=== PATIENT | male | born 1970 | race Caucasian/White ===

== ENCOUNTER 2017-03-06 08:33 | Inpatient (IN) | payer OTHER ==
[~2017-03-06] VITALS: Ht 182.9 cm; Wt 140.0 kg
--- NOTE | ~2017-03-06 | S ---
[facility] [place] [address] SURGICAL PATH RPT PROCEDURE Name: BAY AKBAR Room #: 442-P ADM IN M.R.#: [id number] Admission: 03/06/17 Date of : 70 Discharge: Report #: [id number] Path Case #: [id number] PATHOLOGY REPORT COLLECTION DATE: 03/06/2017 RECEIVED DATE: 03/06/2017 SUBMITTING PHYS: Dr. Coleman Stewart OTHER PHYS: Dr. Mara Dan SPECIMEN(S) RECEIVED: A.Duodenum B.Gastritis * * * * * * * * * * * * FINAL DIAGNOSIS: A. Small bowel mucosa, duodenum, endoscopic biopsy: - Mild peptic duodenitis. - Negative for villous blunting or increase in intraepithelial lymphocytosis. B. Gastric mucosa, gastritis, endoscopic biopsy: - Mild reactive gastropathy with focal active gastritis. - Negative for intestinal metaplasia or atrophy. - Negative for Helicobacter pylori. (IUV:zoila; 03/07/2017) COMMENT: Helicobacter pylori immunohistochemical stain performed on block B1 Negative. (IUV:zoila; 03/07/2017) PATHOLOGIST: Mouna Pizarro M.D. REPORT ELECTRONICALLY SIGNED BY: Mouna Pizarro M.D. DATE/TIME: 03/07/2017 15:07 * * * * * * * * * * * * GROSS PATHOLOGY: A. Received in formalin labeled "Bay Akbar, duodenum," are four segments of carpenter soft tissue measuring 0.6 x 0.5 x 0.2 cm in aggregate dimensions and ranging from 0.3 to 0.4 cm in maximum dimension. The specimen is submitted entirely in cassette A1. B. Received in formalin labeled "irena Kennedy," are two segments of carpenter soft tissue measuring 0.5 x 0.5 x 0.3 cm in aggregate dimensions and ranging from 0.4 to 0.5 cm in maximum dimension. The specimen is submitted entirely in cassette B1. (TSD; 03/06/2017) [address] [address] SURGICAL PATH RPT PROCEDURE Name: BAY AKBAR Room #: 442-P [facility] IN ..#: [id number] Admission: 03/06/17 Date of : 70 Discharge: Report #: [id number] Path Case #: [id number] CLINICAL HISTORY: Pre-OP DX: Anemia, heme + Post OP DX: Duodenitis, gastritis INITIAL CPT CODE(S): A; 16095 B; 92236, 60638 Professional services performed by [facility] at [address], [place] [address] Technical services performed by [facility] at [address] [place] [address], [facility] [address] [address]. [facility] [address] [address] PHONE: [phone] DIRECTOR: Pavel Castellon M.D. * * * END OF REPORT * * *
--- NOTE | ~2017-03-06 | P ---
[facility] [place] [address] PROCEDURE REPORT Name: GERSON JOHNSON Room #: 442-P [facility] IN ..#: [id number] Admission: 03/06/17 Attend Phys: Coleman Block Discharge: Date of : 70 Report #: [id number] THIS REPORT FOR: //name// CC: Coleman Dan MD DATE OF SERVICE: 03/06/2017 PROCEDURE PERFORMED: Upper endoscopy with biopsies. HISTORY OF PRESENT ILLNESS: The patient is a 46-year-old male with a history of multiple medical problems including end-stage renal disease, on hemodialysis who has a history of anemia. He was noted to have a hemoglobin of 6.2 on 03/02/2017, was reportedly transfused 2 units of packed cells. He presents today for an EGD and colonoscopy, he has never had an endoscopy before. He denies any GI symptoms. Apparently, he had a Hemoccult positive stool as well. He is on Protonix b.i.d. He believes this a new medication, he has been on aspirin, but this has been held for the last few days. DESCRIPTION OF PROCEDURE: The risks and benefits of the procedure were explained to the patient, those risks including but not limited to bleeding, perforation, the risk of sedation. He understood these risks and gave informed consent. Sedation was given using propofol and ketamine per anesthesia. Next, using a standard SoWeTripinon upper endoscope, the scope was placed in the patient's mouth and advanced under direct vision through the esophagus, stomach and into the second portion of the duodenum. The esophagus was normal throughout. The GE junction was normal. There was a mild diffuse gastritis. Biopsies were obtained. No evidence of ulcerations or erosions. No bleeding. The pylorus was normal and patent. The duodenal bulb was normal. In the first and second portion, there was a mild duodenitis. Biopsies were obtained. No bleeding or ulcerations. At this point, the scope was then withdrawn and the procedure terminated. The patient tolerated the procedure well. IMPRESSION: 1. Mild gastritis. 2. Mild duodenitis. 3. Otherwise, normal upper endoscopy. RECOMMENDATIONS: 1. Await biopsy results. 2. Continue PPI therapy. 3. We will proceed with colonoscopy next today. [address] [address] PROCEDURE REPORT Name: GERSON JOHNSON Room #: 442-P [facility] IN .R.#: [id number] Admission: 03/06/17 Attend Phys: Coleman Block Discharge: Date of : 70 Report #: [id number] Thank you for allowing me to participate in his care. <ELECTRONICALLY SIGNED> By: Coleman Stewart MD 03/07/17 1413 1138 1247 Coleman Stewart MD /nt
--- NOTE | ~2017-03-06 | H ---
[facility] [place] [address] HISTORY AND PHYSICAL Name: GERSON JOHNSON Room #: 442-P ADM IN M.R.#: [id number] Admission: 03/06/17 Attend Phys: Coleman Block Discharge: Date of : 70 Report #: [id number] THIS REPORT FOR: //name// CC: Coleman Dan DATE OF SERVICE: 03/06/2017 CHIEF COMPLAINT: Hypoxia, weakness. HISTORY OF PRESENT ILLNESS: The patient is a 46-year-old male with history of chronic kidney disease, history of CVA, status post bilateral below-knee amputation, was recently diagnosed with Strep mitis endocarditis. The patient has been disabled secondary to brain aneurysm and CVA. The patient was admitted at [facility] and was diagnosed with Streptococcus bacteremia. A MILAGROS showed mitral valve regurgitation and subsequently has been treated with IV ceftriaxone 2 gram IV daily. He also went into acute renal failure and has been on hemodialysis since then. The patient was found to have a hemoglobin of 6.6 last week at the ____ center. The patient was subsequently referred to GI for outpatient EGD and colonoscopy. EGD today showed mild gastritis and duodenitis. Colonoscopy was unremarkable. The patient was admitted post-procedure for hypoxia. Anesthesiologist was concerned about his hypoxia. The patient states that he has had mild shortness of breath. The patient denies any chest pain. He has noticed some increasing right arm swelling. He denies any nausea, vomiting, abdominal pain. The patient denies any hematemesis, melena or hematochezia. No cough or expectoration. PAST MEDICAL HISTORY: Significant for chronic kidney disease, history of CVA 3 years ago, history of brain aneurysm, history of peripheral vascular disease status post bilateral BKA, history of diabetes, history of chronic kidney disease, anemia secondary to chronic kidney disease, chronic respiratory failure in the past. PAST SURGICAL HISTORY: Includes bilateral knee amputation and dialysis catheter placement. SOCIAL HISTORY: He is . He is disabled. He does have previous history of smoking. No history of alcohol abuse or illicit drug abuse. FAMILY HISTORY: Significant for diabetes. HOME MEDICATIONS: Reviewed. ALLERGIES: No known drug allergies. REVIEW OF SYSTEMS: [facility] [address] [place] [address] HISTORY AND PHYSICAL Name: GERSON JOHNSON Room #: 442-P [facility] IN [facility].#: [id number] Admission: 03/06/17 Attend Phys: Coleman Block Discharge: Date of : 70 Report #: [id number] CONSTITUTIONAL: The patient has had some low-grade fever. Denies any visual disturbance. No recent weight loss or weight gain. EYES: No change in vision. THROAT: Denies any sore throat. CARDIOVASCULAR: No chest pain. RESPIRATORY: No cough or expectoration. GASTROINTESTINAL: No nausea, vomiting, abdominal pain. GENITOURINARY: No dysuria or hematuria. NEUROLOGIC: Denies any focal numbness or weakness of the extremity. He says he has occasional expressive aphasia. The 12-point review of system is negative other than the positive and the negative dictated in the history of present illness and the review of system. PHYSICAL EXAMINATION: VITAL SIGNS: Reviewed. Blood pressure is 156/89, heart rate of 90 per minute, afebrile. He is saturating around 93% on 2 liters of oxygen, not in acute respiratory distress. EYES: Pupils equal, reactive to light. THROAT: Appears normal. NECK: Supple, no JVD, no bruits, no lymphadenopathy. CARDIOVASCULAR SYSTEM: S1, S2, negative S3, no murmur. CHEST: Bilateral air entry present. Clear on auscultation. There is a dialysis catheter in the right infraclavicular area. The right arm is swollen. ABDOMEN: Soft, bowel sounds present, no mass, no organomegaly, no tenderness. EXTREMITIES: Periphery, status post bilateral below-knee amputation. There is no edema in the stump. LABORATORY DATA: Reviewed. White count is 11.2, hemoglobin 6.6, platelets 297. Coagulation studies are unremarkable. Chemistry showed a sodium of 133, BUN and creatinine of 35 and 5.9. His iron level is low at 19 and ferritin is 211. AST and ALT are within normal limit. Albumin is 2.1. ABG showed a pH of 7.35, pCO2 of 50, pO2 of 69. He had a chest x-ray done, which showed mild congestion and cardiomegaly. Right central venous catheter position in place. There is a tiny opaque density which overlies the neck, possibly related to the bandage or a foreign body. ASSESSMENT AND PLAN: 1. Acute on chronic respiratory failure, probably multifactorial, most likely secondary to his worsening anemia/mild pulmonary congestion. We will consult Pulmonary. We will obtain a Doppler of his right upper extremity to rule out any deep vein thrombosis. We will consider doing a V/Q scan to rule out any PE. 2. Anemia, likely secondary to gastrointestinal bleeding/chronic illness secondary to chronic kidney disease. [facility] [address] [place] [address] HISTORY AND PHYSICAL Name: GERSON JOHNSON Room #: 442-P ADM IN M.R.#: [id number] Admission: 03/06/17 Attend Phys: Coleman Block Discharge: Date of : 70 Report #: [id number] The patient will be transfused 2 units of packed RBC during dialysis. We will repeat his labs in the morning. 3. Acute renal failure, presently on hemodialysis. Nephrology will be consulted for hemodialysis. 4. Deep venous thrombosis prophylaxis, he will be on SCDs if possible. 5. Lovenox has been held in the possibility of GI bleed. 6. Status post EGD showing gastritis. The patient will be on Protonix. 7. History of Strep mitis endocarditis, presently on IV ceftriaxone, which will be continued. Treatment plan has been explained to the patient in detail. By: [id number] Varinder Fu MD /nt
--- NOTE | ~2017-03-06 | P ---
[facility] [address] PROCEDURE REPORT Name: GERSON JOHNSON Room #: 442-P [facility] IN M.R.#: [id number] Admission: 03/06/17 Attend Phys: Coleman Block Discharge: Date of : 70 Report #: [id number] THIS REPORT FOR: //name// CC: Coleman Dan MD DATE OF SERVICE: 03/06/2017 PROCEDURE PERFORMED: Colonoscopy. HISTORY OF PRESENT ILLNESS: The patient is a 46-year-old male with a history of end-stage renal disease, on hemodialysis and other medical problems with a history of anemia, reportedly Hemoccult positive stool recently, hemoglobin of 6.2 on the . He was transfused 2 units. He denies any obvious bright red blood per rectum or melena. No family history of colon cancer. Denies any abdominal pain. DESCRIPTION OF PROCEDURE: The risks and benefits of the procedure were explained to the patient, those risks including but not limited to bleeding, perforation, the risk of sedation. He understood these risks and gave informed consent. Sedation was given using propofol and ketamine per anesthesia. Next, a digital rectal exam was initially performed, which was normal. Next, using a standard Fujinon colonoscope, the scope was placed in the patient's anus and advanced under direct vision to the cecum. The overall prep was fair in some areas and was good in some areas. Multiple washings and aspirations were performed. Most areas were well visualized. The cecum and ileocecal valve were normal in appearance. The ascending, transverse, descending and sigmoid colon were normal. The rectal mucosa was normal. On retroflexion, small nonbleeding internal hemorrhoids were noted. No evidence of bleeding throughout the exam today. The scope was then withdrawn and the procedure terminated. The patient tolerated the procedure well. IMPRESSION: 1. Small nonbleeding internal hemorrhoids. 2. Otherwise, normal colonoscopy. RECOMMENDATIONS: 1. Observe the patient post-procedure. 2. Continue to monitor hemoglobin. Anemia may be secondary to end-stage renal disease. However, he does reportedly have Hemoccult positive stools. If his hemoglobin trends down in the future, could consider an M2 capsule endoscopy as well. Would continue PPI therapy. [address] [address] PROCEDURE REPORT Name: GERSON JOHNSON Room #: 442-P [facility] IN ..#: [id number] Admission: 03/06/17 Attend Phys: Coleman Block Discharge: Date of : 70 Report #: [id number] Thank you for allowing me to participate in his care. <ELECTRONICALLY SIGNED> By: Coleman Stewart MD 03/06/17 1705 1141 1231 Coleman Stewart MD /nt
--- NOTE | ~2017-03-06 | HC ---
[facility] [place] [address] CONSULTATION Name: JOHNSONGERSON Micheal Room #: 442-P ADM IN M.R.#: [id number] Admission: 03/06/17 Attend Phys: Coleman Block Discharge: Date of : 70 Report #: [id number] THIS REPORT FOR: //name// CC: Coleman Stewart Mara Ni DATE OF SERVICE: 03/06/2017 REASON FOR CONSULTATION: End-stage renal disease requiring hemodialysis. HISTORY OF PRESENT ILLNESS: This is a 46-year-old male who has had hospitalizations at multiple different locations. He had been admitted with an endocarditis at in [place], [place]. He was treated with a long course of Rocephin at that location. The patient is not very aware of details, but these details have been provided by one of my partners, Dr. Stephanie Robles, who has been taking care of the patient at [facility]. Apparently during that hospitalization, his baseline creatinine of 3.5 got worse and continued to increase. He had a dialysis catheter placed and he was started on hemodialysis. He was transferred to [facility] for additional care. While there, he has continued to undergo hemodialysis on a Monday, Monday, Monday basis. His last dialysis was 3 days ago on 03/03/2017. His dialysis has actually been going fairly well. He has had his temporary converted to a tunneled right internal jugular vein dialysis catheter. There has been some success with ultrafiltration during his hospital stay. His more pressing issue recently has been that of worsening anemia. Dr. Robles reports at least 4 transfusions over the past week of packed red blood cells. He has been started on iron replacement and also some Aranesp, but that has not had a chance to fully take effect. He was sent over and today had a colonoscopy done and reportedly that was a negative study: He got hypoxemic afterwards and now is admitted to the hospital. I did not have much chance to talk to the patient. PAST MEDICAL HISTORY: The patient has longstanding diabetes, also some hypertension. He has had osteomyelitis and bilateral below the knee amputations. He had the endocarditis with a strep and I am uncertain of the exact bacteria and that he has been on long-term antibiotics for that. He reports a previous brain aneurysm. He has obviously had the anemia as noted above. MEDICATIONS: On admission include aspirin 81 mg daily, atorvastatin 10 mg daily, ceftriaxone 2 grams daily, citalopram 20 mg daily, Aranesp 40 mcg weekly, Lovenox 30 mg daily, hydrocodone for pain, lisinopril 20 mg daily, lorazepam 1 mg q. 6 hours p.r.n., melatonin 5 mg daily, pantoprazole 40 mg daily, MiraLax, iron infusions 125 mg 3 times weekly and a Nephro-Xavier daily, multiple p.r.n. medications. ALLERGIES: No known medical allergies. [address] [address] CONSULTATION Name: GERSON JOHNSON Room #: 442-P [facility] IN M.R.#: [id number] Admission: 03/06/17 Attend Phys: Coleman Block Discharge: Date of : 70 Report #: [id number] FAMILY HISTORY: Noncontributory. SOCIAL HISTORY: The patient is and lives in [place], [place]. He is medically disabled with his bilateral amputations. REVIEW OF SYSTEMS: He has had some swelling in his right arm, which is a newer problem. Denies pain in that arm. His edema has been a problem, but that is quite a bit improved. He reports no dyspnea, cough, chest pain or palpitation at this time. He has been eating without problem. He tends towards constipation. No apparent recent fevers, chills or sweats. PHYSICAL EXAMINATION: GENERAL: A 46-year-old very large male. He is awake, alert and oriented. VITAL SIGNS: Blood pressure 156/89, heart rate 90, oxygen sat 93%, temperature 100.0. HEENT: Shows pupils are equal and reactive. Sclerae nonicteric. Oral mucosa is moist. NECK: Veins are not distended. Right IJ tunneled catheter is in place, looks clean. CHEST: Show shallow respirations bilaterally. HEART: Regular rate and rhythm. ABDOMEN: Obese. He has still substantial abdominal wall edema, at least 2+. Bowel sounds are present. EXTREMITIES: He has bilateral below the knee amputations. He does have 2+ isolated right upper arm edema. The arm is warm and perfused. LABORATORY DATA: Sodium 133, potassium 4.9, chloride 99, bicarbonate 26, BUN 35, creatinine 5.9. Glucose 89, calcium 8.2, phosphorus 5.0, alkaline phosphatase 168, total protein 6.2, albumin 2.1. Iron sat 10%. White count 11.2, hemoglobin 6.6, hematocrit 21.2, platelets 297, ferritin 211. Blood gas; pH 7.35, pCO2 of 50, pO2 of 69.2, lactate 1.04. ASSESSMENT: 1. End-stage renal disease. He is in need of dialysis. He is in need of transfusion. We have been asked to dialyze him today. We will dialyze him and transfuse him 2 units of packed red blood cells. We will run him on 3 potassium dialysate. We will try for 3 liters of ultrafiltration today. 2. Severe anemia requiring multiple recent transfusions, colonoscopy essentially negative. He had some nonbleeding internal hemorrhoids, but nothing else was found of note. 3. Endocarditis, continues on antibiotics. 4. Previous bilateral below the knee amputations. PLAN: 1. Dialysis today with 2 units transfused red blood cells to be given. [facility] [address] [place] [address] CONSULTATION Name: GERSON JOHNSON Room #: 442-P [facility] IN [facility]#: [id number] Admission: 03/06/17 Attend Phys: Coleman Block Discharge: Date of : 70 Report #: [id number] 2. Repeat labs in the morning. 3. We will follow along this patient's care. By: 1644 01 Sundar Gannon MD /nt
--- NOTE | ~2017-03-06 | HC ---
[facility] [place] [address] CONSULTATION Name: GERSON JOHNSON Room #: 442-P [facility] IN M.R.#: [id number] Admission: 03/06/17 Attend Phys: Coleman Block Discharge: Date of : 70 Report #: [id number] THIS REPORT FOR: //name// CC: Coleman Dan DATE OF SERVICE: 03/06/2017 PRIMARY CARE PHYSICIAN: Dr. Mara Dan. REFERRAL PHYSICIAN: Dr. Varinder Fu. REASON FOR REFERRAL: Hypoxia. HISTORY OF PRESENT ILLNESS: The patient is a 46-year-old white male who was admitted with anemia, dyspnea. A pulmonary consultation was requested. The patient has a complicated medical history. He was admitted at ____ [facility] in ____, [place] for endocarditis. He has been on prolonged antibiotics. He also has end-stage renal disease, undergoing hemodialysis. The patient has history of CVA, bilateral jdcnf-cik-dgjx amputation. He was recently admitted to [facility]. He is being evaluated for anemia. He was undergoing colonoscopy earlier today. Following the procedure, the patient had complained of dyspnea, which led to the admission. Currently, he is undergoing hemodialysis. The patient was felt to be volume overloaded. His hemoglobin on admission was around 6. At this time, he feels much better. The patient denies any dyspnea. Denies any history of chronic lung disease. PAST MEDICAL HISTORY: As mentioned above. 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 PAST SURGICAL HISTORY: As mentioned above, he has a dialysis catheter placed. ALLERGIES: None to medications. HOME MEDICATIONS ON ADMISSION: Reviewed as in SEP. The patient remains on Rocephin. FAMILY HISTORY: Remarkable for diabetes in his parents. [facility] [address] [place] [address] CONSULTATION Name: GERSON JOHNSON Micheal Room #: 442-P [facility] IN ..#: [id number] Admission: 03/06/17 Attend Phys: Coleman Block Discharge: Date of : 70 Report #: [id number] SOCIAL HISTORY: The patient denies tobacco or alcohol use. He has smoked in the past, but quit. He is . He is disabled. REVIEW OF SYSTEMS: As mentioned above, otherwise 10-point system review negative. PHYSICAL EXAMINATION: GENERAL: He is awake, alert, in no apparent distress. VITAL SIGNS: Temperature maximum was 100, currently is 98 degrees Fahrenheit; pulse is 87; respiratory rate is 20; blood pressure 140/95 mmHg; saturation 98%. HEENT: Normocephalic, atraumatic. NECK: Supple, without lymphadenopathy or thyromegaly. CHEST: Breath sounds are clear without rales or wheezes. CARDIOVASCULAR: Normal S1, S2. No murmurs or gallop. There is no JVD. There is no carotid bruit. Pulses are 2+/4+ bilaterally. ABDOMEN: Obese, soft, nontender, no organomegaly or masses felt. GENITOURINARY: Deferred. RECTAL: Deferred. EXTREMITIES: Remarkable for bilateral BKA. Otherwise, no cyanosis, clubbing. Revealed edema involving the right upper extremity LABORATORY DATA: Portable chest x-ray shows cardiomegaly with mild interstitial markings bilaterally. Doppler ultrasound of the right upper extremity revealed nonocclusive chronic clot involving the right jugular vein. Arterial blood gas revealed pH 7.35, pCO2 of 50, pO2 of 69 on 4 liters of O2. Hemoglobin early was 6.2, WBC 11,300. Albumin 2.1. IMPRESSION: 1. Dyspnea in this 46-year-old white male. Etiology likely due to volume overload and anemia. He is much better now while undergoing hemodialysis. 2. Acute anemia. Agree to transfusion to keep hemoglobin greater than 7 to 7.5. 3. Chronic hypercapnic respiratory failure. The patient will benefit from sleep evaluation along with pulmonary functions as an outpatient. 4. Endocarditis, undergoing antibiotic therapy. 5. Peripheral vascular disease status post bilateral ptqbu-itrt-aylzjpvryt. 6. End-stage renal disease, as mentioned above being dialyzed at this moment. RECOMMENDATIONS: The patient appears to be well compensated from pulmonary standpoint. We will continue monitoring. Agree with transfusion and dialysis. As an outpatient, the patient would benefit from evaluation of possible sleep disorder. [address] [address] CONSULTATION Name: GERSON JOHNSON Room #: 442-P [facility] IN M.R.#: [id number] Admission: 03/06/17 Attend Phys: Coleman Block Discharge: Date of : 70 Report #: [id number] Thank you for this consultation. By: [id number] Zen Desai, ERIN /nt
[~2017-03-06 08:33] MED LIST: ALL DAY ALLERGY10 M3 PO; ARANESP 4040 MCG/0.4 IJ; ASPIR 8181 MG PO; ATIVAN1 MG PO; BENADRYL25 MG PO; CEFTRIAXONE2 G1 IVPB; CELEXA20 MG PO; DEXTROSE 500.5 GM/M1 IV; ENOXAPARIN30 MG/0.1 SUBQ; HYDROCODONE-AP1 EAC6 PO; HYDROCORTISON28.4 G5 TOP; LIPITOR10 MG PO; MELATONIN5 M1 PO; MIRALAX17 G1 PO; NEPRO-VITE PO; NYSTATIN15 G1 TOP; ONDANSETRON4 MG/2 M1 IV PUSH; PANTOPRAZOLE SO40 M1 PO; PRINIVIL20 M1 PO; RENVELA800 MG PO; SENNA8.6 MG PO; SILVADENE20 GM TOP; SOD FER GL62.5 MG/5 IV; TYLENOL325 MG PO
[2017-03-06 12:51] LABS: ABG SAMPLE TYPE ARTERIAL; BE(vivo) 1.3 mmol/L (-2 to +3); HCO3 27.2 mmol/L (22.0-26.0); LACTATE 1.04 mmol/L (0.5-2.0); O2(CT) 9.8 mL/dL (15.0-23.0); O2Hb 92.2 % (92.0-98.0); PCO2 50.4 mmHg (35.0-45.0); PO2 69.2 mmHg (80.0-100.0); STICK SITE R.RADIAL; sO2 92.9 % (92.0-98.0); tCO2 28.7 mmol/L (24.0-30.0)
[2017-03-06 13:14] LABS: HEMATOCRIT 21.2 % (42.0-52.0); HEMOGLOBIN 6.6 gm/dL (14.0-18.0); MCH 27.1 pg (26.0-34.0); MCHC 31.1 g/dL (28.0-37.0); MCV 87.2 fL (80.0-100.0); RBC 2.43 mil/uL (4.50-6.00); RDW 15.6 % (10.5-14.5); WBC 11.2 thou/uL (4.0-11.0)
[2017-03-06 13:18] LABS: ALBUMIN 2.1 g/dL (3.4-5.0); CALCIUM 8.2 mg/dL (8.5-10.1); CREATININE 5.9 mg/dL (0.7-1.3); POTASSIUM 4.9 mmol/L (3.5-5.1); TOTAL BILIRUBIN 0.3 mg/dL (<0.1-1.0); TOTAL PROTEIN 6.2 g/dL (6.4-8.2)
[2017-03-06 13:21] LABS: APTT 31.7 Seconds (24.5-32.8); INR 1.1; PROTIME 11.7 Seconds (9.3-11.4)
[2017-03-06 14:20] VITALS: BP 156/89
[2017-03-06 15:04] LABS: % SATURATION 10 % (20-39); IRON 19 ug/dL (65-175); TIBC 192 ug/dL (250-450); UIBC 173 ug/dL
[2017-03-06 19:40] LABS: HEMATOCRIT 21.5 % (42.0-52.0)
[2017-03-06 19:41] LABS: HEMOGLOBIN 6.7 gm/dL (14.0-18.0); MCH 27.1 pg (26.0-34.0); MCHC 31.1 g/dL (28.0-37.0); MCV 87.1 fL (80.0-100.0); RBC 2.47 mil/uL (4.50-6.00); RDW 15.8 % (10.5-14.5); WBC 8.6 thou/uL (4.0-11.0)
[2017-03-06 19:57] LABS: APTT 33.2 Seconds (24.5-32.8); INR 1.1; PROTIME 11.7 Seconds (9.3-11.4)
[2017-03-06 23:20] VITALS: BP 153/86
[2017-03-07 03:15] VITALS: BP 137/77
[2017-03-07 06:00] VITALS: BP 144/74
[2017-03-07 06:46] LABS: HEMATOCRIT 27.3 % (42.0-52.0); MCH 27.6 pg (26.0-34.0); MCV 86.3 fL (80.0-100.0); PLATELET COUNT 317 thou/uL (150-400); RBC 3.16 mil/uL (4.50-6.00); RDW 15.7 % (10.5-14.5); WBC 12.2 thou/uL (4.0-11.0)
[2017-03-07 06:57] LABS: CALCIUM 8.3 mg/dL (8.5-10.1); POTASSIUM 4.5 mmol/L (3.5-5.1)
[2017-03-07 06:59] LABS: HEMOGLOBIN 8.7 gm/dL (14.0-18.0); MANUAL DIFF YES
[2017-03-07 07:09] LABS: CREATININE 4.3 mg/dL (0.7-1.3)
[2017-03-07 07:56] VITALS: BP 148/95
[2017-03-07 08:13] LABS: ABSOLUTE NEUTROPHILS 9.6 thou/uL (1.4-8.2); METAMYELOCYTES 3 %; TOTAL CELL COUNT 100
[2017-03-07 08:14] LABS: ANISOCYTOSIS 1+
[2017-03-07 08:15] LABS: HYPOCHROMASIA 1+; POLYCHROMASIA SLIGHT
[2017-03-07] MEDS ORDERED: CARAFATE1 GM PO (13:32)
[2017-03-07] MEDS ORDERED: PROBIOTIC1 EAC3 PO (13:32)
[2017-03-07 15:42] VITALS: BP 151/85
== END 2017-03-07 16:33 | DRG 344 ==
LOC: GI 08:33 → 4S 13:44
PROVIDERS: Anesthesiology; Internal Medicine; Specialist
PROC: 0DB68ZX Excision of Stomach, Via Natural or Artificial Opening Endoscopic, Diagnostic (ICD-10-PCS; principal; 2017-03-06)
PROC: 0D9H8ZZ Drainage of Cecum, Via Natural or Artificial Opening Endoscopic (ICD-10-PCS; principal; 2017-03-06)
PROC: 0DB98ZX Excision of Duodenum, Via Natural or Artificial Opening Endoscopic, Diagnostic (ICD-10-PCS; principal; 2017-03-06)
PROC: 30233N1 Transfusion of Nonautologous Red Blood Cells into Peripheral Vein, Percutaneous Approach (ICD-10-PCS; principal; 2017-03-06)
DX: K29.70 Gastritis, unspecified, without bleeding (principal); J96.21 Acute and chronic respiratory failure with hypoxia; N18.6 End stage renal disease; J96.02 Acute respiratory failure with hypercapnia; N17.9 Acute kidney failure, unspecified; E46 Unspecified protein-calorie malnutrition; Z68.41 Body mass index [BMI] 40.0-44.9, adult; I12.0 Hypertensive chronic kidney disease with stage 5 chronic kidney disease or end stage renal disease; I38 Endocarditis, valve unspecified; K64.8 Other hemorrhoids; D63.1 Anemia in chronic kidney disease; D64.9 Anemia, unspecified; K29.80 Duodenitis without bleeding; I73.9 Peripheral vascular disease, unspecified; E11.22 Type 2 diabetes mellitus with diabetic chronic kidney disease; Z99.2 Dependence on renal dialysis; Z86.73 Personal history of transient ischemic attack (TIA), and cerebral infarction without residual deficits; Z89.512 Acquired absence of left leg below knee; Z89.511 Acquired absence of right leg below knee; Z79.4 Long term (current) use of insulin
CPT/HCPCS: 10100; 32100; 62110; 62900; 70005

== ENCOUNTER 2017-03-19 09:54 | Inpatient (IN) | payer OTHER ==
[2017-03-19] VITALS (22 sets, daily range): BP systolic 94–156; BP diastolic 58–106
[~2017-03-19] VITALS: Ht 182.9 cm; Wt 59.8 kg
--- NOTE | ~2017-03-19 | HC ---
[facility] [place] [address] CONSULTATION Name: GERSON JOHNSON Room #: 211-P [facility] IN ..#: [id number] Admission: 03/19/17 Attend Phys: Keron Carroll MD Discharge: Date of : 70 Report #: [id number] THIS REPORT FOR: //name// CC: Keron Carroll NO PCP DATE OF SERVICE: 03/19/2017 ATTENDING PHYSICIAN: Keron Carroll MD REASON FOR CONSULTATION: End-stage renal disease with volume overload. HISTORY OF PRESENT ILLNESS: The patient has been stable and dialyzing at [facility], has developed worsening respiratory insufficiency partially due to narcotics. Chest x-ray did show fluid overload, is being admitted for pulmonary management and dialysis. PAST MEDICAL HISTORY: Longstanding diabetes with hypertension, osteomyelitis, bilateral oyzvt-ezo-tewh amputations, history of endocarditis with also history of brain aneurysm. He has been on 3 times weekly dialysis. MEDICATIONS: Include Nephro-Xavier, Protonix 40 mg daily, lisinopril 20 mg daily, Celexa 20 mg daily, atorvastatin 10 mg daily, aspirin 81 mg daily and Aranesp. ALLERGIES: No known medical allergies. FAMILY HISTORY: No renal disease. SOCIAL HISTORY: and living in [place]. REVIEW OF SYSTEMS: Cannot be taken due to his somnolence. He is barely responsive in the ICU. PHYSICAL EXAMINATION: GENERAL: Overweight gentleman. SKIN: He has got a quite diffuse erythematous, peripheral follicular rash. SKELETAL: Shows bilateral below knee amputations, very obese and swollen. HEENT: Extraocular movements cannot be tested. BiPAP mask is on. NECK: Supple. CHEST: Shows noisy breath sounds with rhonchi. HEART: Distant, but regular. ABDOMEN: Soft and nontender with edema. EXTREMITIES: Show no peripheral edema, sdvsq-pkc-idcv amputations. NEUROLOGIC: He is somnolent and not responding well. LABORATORY DATA: His potassium is 5, hemoglobin is 9.7, white count 14.5. [facility] [address] [place] [address] CONSULTATION Name: GERSON JOHNSON Room #: 211-[facility] IN [facility]#: [id number] Admission: 03/19/17 Attend Phys: Keron Carroll MD Discharge: Date of : 70 Report #: [id number] ASSESSMENT AND PLAN: 1. Respiratory failure, could be a combination of fluid overload and hypercapnic failure from overnarcotization. We will dialyze him acutely and take fluid off and see if that helps. 2. End-stage renal disease, on 3 times weekly dialysis. 3. Status post bilateral ulqos-wmf-pkud amputations. 4. History of brain aneurysm with debilitation and disability. 5. History of Strep endocarditis. <ELECTRONICALLY SIGNED> By: Nilson Arias MD 03/21/17 1144 [id number] [id number] Nilson Arias MD /nt
--- NOTE | ~2017-03-19 | HC ---
[facility] [place] [address] CONSULTATION Name: GERSON JOHNSON Room #: [facility] IN ..#: [id number] Admission: 03/19/17 Attend Phys: Keron Carroll MD Discharge: Date of : 70 Report #: [id number] THIS REPORT FOR: //name// CC: KERON Carroll NO PCP DATE OF SERVICE: 03/19/2017 REFERRING PROVIDER: Keron Carroll MD REASON FOR CONSULTATION: Respiratory failure. CHIEF COMPLAINT: Altered mental status. HISTORY OF PRESENT ILLNESS: Our group was asked to see the patient in consultation this evening while hospitalized at [facility]. The patient was recently admitted here after being poorly responsive after a gastroenterology procedure due to anemia. A 46-year-old male without any significant past pulmonary history, has history of diabetes mellitus type 2 with bilateral vrtlq-tsg-wjrx amputations, history of endocarditis and end-stage kidney disease on hemodialysis. States [facility], but became less responsive today. He was found in our Emergency Department to be in hypercapnic respiratory failure of unclear etiology with a pH of 7.13 and pCO2 of 80. The patient underwent significant dialysis this evening with about 2-1/2 liters of fluid taken off. A chest x-ray did reveal some increasing pulmonary edema findings prior to dialysis. Denies any cough, congestion, wheezing. No abdominal pain, nausea or vomiting. He is very alert and conversant post-dialysis and removed from noninvasive positive pressure ventilation and placed on nasal cannula O2 this evening. Able to give reasonable history. No other pulmonary history is reported, although he did have some noted hypercapnia without significant acidosis on last admission less than one month ago. PAST MEDICAL HISTORY: 1. History of hypertension. 2. Bilateral knee amputations. 3. Morbid obesity. 4. History of diabetes mellitus type 2. 5. Significant peripheral neuropathy. 6. End-stage kidney disease, on hemodialysis. OUTPATIENT MEDICATIONS: Include Lasix, metoprolol, vancomycin, aspirin, [facility] [address] [place] [address] CONSULTATION Name: GERSON JOHNSON Room #: [address] [place] [address].#: [id number] Admission: 03/19/17 Attend Phys: Keron Carroll MD Discharge: Date of : 70 Report #: [id number] atorvastatin, ceftriaxone, citalopram, Darbepoetin, hydrocortisone topical, lisinopril, melatonin, nystatin, sevelamer, cetirizine, hydrocodone, lorazepam and ondansetron. SOCIAL HISTORY: The patient is an ex-smoker. No alcohol consumption, currently resides in a long-term care facility. FAMILY HISTORY: Negative for any significant pulmonary disease. REVIEW OF SYSTEMS: CONSTITUTIONAL: Denies any fevers, chills, sweats, change in weight or appetite. ENT: No upper respiratory congestion or rhinorrhea. CARDIOVASCULAR: No chest pains or palpitations. GASTROINTESTINAL: Denies any nausea, vomiting, diarrhea, constipation or abdominal pain. GENITOURINARY: No dysuria, no frequency. INTEGUMENT: Denies any rash. MUSCULOSKELETAL: No joint swelling or edema known. EXTREMITIES: Known bilateral lower extremity below knee amputations. PHYSICAL EXAMINATION: VITAL SIGNS: Afebrile, pulse 80s, respiratory rate of 15 and blood pressure 103/72. GENERAL: This is a pleasant middle-aged male in no distress, speaking full sentences. ENT: Clear oropharynx. NECK: Supple, no lymphadenopathy. Right IJ tunneled dialysis catheter in place with some surrounding erythema at the insertion site but no expressible pus. LUNGS: Relatively clear. CARDIOVASCULAR: Heart is regular. No murmurs noted. ABDOMEN: Soft, nontender, no masses. EXTREMITIES: Without edema. Bilateral below the knee amputations are noted. LABORATORY DATA: White blood cell count ____, hemoglobin 10, hematocrit 31, platelet count 300. Sodium 133, potassium 5.0, chloride 98, bicarbonate 29, BUN 42, creatinine 6.0, glucose 129. TSH is pending. At my request arterial blood gas on BiPAP revealed pH 7.16, pCO2 of 66, pO2 122, bicarbonate 23, lactate was 0.87 that was on 60% FiO2, BiPAP of 20/6. Chest x-ray revealed some mild pulmonary edema pattern and cardiomegaly. IMPRESSION: 1. Acute hypercapnic respiratory failure, likely multifactorial, I would be concerned about some of the sedating medications he may have received at the nursing facility he is at in addition to significant problems with respirations, perhaps at baseline with superimposed pulmonary edema. [facility] [address] [place] [address] CONSULTATION Name: GERSON JOHNSON Room #: 211-P [facility] IN ..#: [id number] Admission: 03/19/17 Attend Phys: Keron Carroll MD Discharge: Date of : 70 Report #: [id number] 2. End-stage kidney disease. 3. Possible sepsis as suggested by the elevated white blood cell count. 4. Diabetes mellitus type 2. 5. Prior history of bilateral below the knee amputation. SUGGESTIONS: 1. Continue BiPAP with sleep and may need some therapy here long-term. 2. Minimize any sedating medications including narcotics and benzodiazepines. 3. Follow up arterial blood gas in a.m. 4. Hemodialysis per Nephrology. 5. Await cultures. 6. Continue antibiotics. 7. I do not see any indication for bronchodilators at this time even though significant bronchospasm appreciated. 8. We will follow along with you. Thank you for requesting our suggestions. By: [id number] Nicolás Escamilla MD /jared
--- NOTE | ~2017-03-19 | HC ---
[facility] [place] [address] CONSULTATION Name: ALEXBAY W Room #: 211-P [facility] IN ..#: [id number] Admission: 03/19/17 Attend Phys: Keron Carroll MD Discharge: Date of : 70 Report #: [id number] THIS REPORT FOR: //name// CC: Keron Carroll NO PCP REASON FOR CONSULTATION: I was asked to evaluate concerning treatment for endocarditis along with change in mental status and leukocytosis. The patient was seen at [facility] on 02/16/2017, after his transfer from [facility] with Streptococcus mitis bacteremia and endocarditis of the mitral valve. His treatment included ceftriaxone. Over the last month, he was found to have progressive anemia. Endoscopies were performed last week with no specific diagnosis. He on the day of admission developed decreased mental status. He had respiratory compromise and was admitted through the emergency room with a pH of 7.1 and a pCO2 of 80. He had bilateral pulmonary infiltrates and underwent dialysis. Following dialysis, his mental status improved as did his respiratory status. Currently, he is without complaint other than dyspnea with change in position. He states that he is short of breath when he lies flat in bed. No cough or sputum production. No fever, chills or sweats. He was placed on vancomycin and Zosyn. His white count initially 14,000 and now is 12.2 thousand. During the last week, his white count had gotten up to 16,000. His blood cultures at [facility] remained negative. He was set up for an echocardiogram, but that has not been done yet. His last transthoracic echocardiogram on 02/15/2017, showed a 7 x 14 mm mitral valve vegetation. Transesophageal echocardiogram at that time was not performed. His blood cultures had shown Streptococcus intermedius oralis, sensitive to ampicillin, less than 0.25 along with ceftriaxone and vancomycin. ALLERGIES: None known. MEDICATIONS: As noted on his MAR, now including vancomycin and Zosyn. PAST MEDICAL HISTORY: Cerebral aneurysm with stroke, some residual cognitive deficit, underlying diabetes, hypertension, end-stage renal disease, lower extremity osteomyelitis that required bilateral below knee amputations, hyperlipidemia, depression, and peripheral neuropathy. FAMILY HISTORY: Noncontributory. SOCIAL HISTORY: He is a past smoker, no significant alcohol intake, disabled. REVIEW OF SYSTEMS: No chest pain. No nausea, vomiting, or diarrhea. He does have an indwelling Barraza catheter. PHYSICAL EXAMINATION: VITAL SIGNS: He is afebrile, hemodynamically stable. GENERAL: He is alert, cooperative, and pleasant, in no acute distress. He did [facility] [address] [place] [address] CONSULTATION Name: BAY JOHNSON Room #: 211-P [facility] IN .R.#: [id number] Admission: 03/19/17 Attend Phys: Keron Carroll MD Discharge: Date of : 70 Report #: [id number] become dyspneic when I laid him flat in bed or try to role him over to a side. HEENT: Unremarkable. NECK: Supple. He had a right IJ dialysis catheter, which was unremarkable. LUNGS: A few crackles in the bases bilaterally without consolidation. HEART: Regular without murmur. ABDOMEN: Soft, nontender, no hepatosplenomegaly or mass. GENITOURINARY: External genitalia unremarkable with indwelling Barraza catheter. EXTREMITIES: He had bilateral lower extremity BKAs, which were unremarkable. He did have dermatitis involving his right upper arm, which appeared more eczema type as well as actually acneiform lesions to his chest and his lower extremities. NEUROLOGIC: Nonfocal. It is noted on March 06, he underwent colonoscopy, which showed small nonbleeding internal hemorrhoids, otherwise normal. His upper endoscopy showed mild gastroenteritis, mild duodenitis, otherwise normal. Pathology reports revealed mild peptic duodenitis with gastric biopsy showing reactive gastropathy, negative for H. pylori. LABORATORY STUDIES: Now show sodium 136, potassium 4.3, bicarbonate 29, and creatinine 4.2. Hemoglobin 9.7, white count 12.2, unremarkable differential, platelet count 258,000. UA positive for wbc's, rbc's and bacteria. ABG this morning on 3.5 liters of oxygen, pO2 of 59, pCO2 of 58, pH 7.36, lactate 1.3. Chest x-ray showed mild interstitial edema. IMPRESSION: A 46-year-old with diabetes, peripheral vascular disease, end-stage renal disease with Streptococcus intermedius, and mitral valve endocarditis. He presents now with a change in mental status, which may well have been related to narcotics as well as congestive heart failure and respiratory acidosis. His white count has improved. He is back to his baseline 12.7 last month. I would recommend that we repeat his echocardiogram. I will follow up his sedimentation rate and we will need to evaluate further his dyspnea. <ELECTRONICALLY SIGNED> By: Bay Barger MD 03/21/17 1649 [id number] 1052 Bay Barger MD /nt
--- NOTE | ~2017-03-19 | CNG ---
[facility] [place] [address] CYTO-NONGYN REPORT PROCEDURE Name: GERSON AKBAR Room #: 211-P [facility] IN M.R.#: [id number] Admission: 03/19/17 Date of : 70 Discharge: 03/24/17 Report #: [id number] Path Case #: [id number] CYTOPATHOLOGY REPORT COLLECTION DATE: 03/24/2017 RECEIVED DATE: 03/24/2017 SUBMITTING PHYS: Dr. Keron Carroll OTHER PHYS: Dr. Mara Dan CLINICAL HISTORY: Found unresponsive; Resp. failure with hypercap SPECIMEN(S) RECEIVED: A.Pleural fluid, * * * * * * * * * * * * FINAL DIAGNOSIS: A. Pleural fluid: No malignant epithelial cells identified. - Normal and reactive mesothelial cells amongst acute and chronic inflammatory cells and numerous histiocytes present (see comment). COMMENT: Cytomorphological examination of a ThinPrep slide and cell block show scattered mesothelial cells with focal reactive changes amongst acute and chronic inflammatory cells. Scattered histiocytes with hemophagocytosis are noted. No malignant epithelial cells are identified. Clinical and radiographic correlation is recommended. (CLW:mercedes; 03/27/2017) PATHOLOGIST: Christa Sousa M.D. REPORT ELECTRONICALLY SIGNED BY: Christa Sousa M.D. DATE/TIME: 03/27/2017 22:40 * * * * * * * * * * * * GROSS PATHOLOGY: A. Pleural fluid: The specimen is submitted unfixed, labeled "Gerson Akbar". Received by the Cytology Department is 11 mL of cloudy reddish orange fluid. One ThinPrep slide and a formalin fixed cell block were prepared. (mm 03.24.2017) CLINIC CHARGE NURSE(S): BEAU Pires(ASCP) INITIAL CPT CODE(S): A; 27519, 11619 Professional services performed by [facility] at [address], [place], [place] [address] [place] [address] [address] [place] [address] CYTO-NONGYN REPORT PROCEDURE Name: GERSON AKBAR Room #: 211-P [facility] IN M.R.#: [id number] Admission: 03/19/17 Date of : 70 Discharge: 03/24/17 Report #: [id number] Path Case #: [id number] Technical services performed by [facility] at [address] [place] [address]., [address], [place] [address]. [address], [address] [place] [address] PHONE: [phone] DIRECTOR: Pavel Castellon M.D. * * * END OF REPORT * * *
--- NOTE | ~2017-03-19 | 2DMMODE ---
[facility] [address] [place] [address] 2 D/M-MODE ECHOCARDIOGRAM Name: GERSON JOHNSON Room #: 211-P [facility] IN [facility]#: [id number] Admission: 03/19/17 Attend Phys: Keron Carroll MD Discharge: Date of : 70 Date of Service: 03/21/17 1429 Report #: [id number] THIS REPORT FOR: //name// APPROVED REPORT Study performed: 03/21/2017 13:21:14 EXAM: Comprehensive 2D, Doppler, and color-flow Echocardiogram Patient Location: In-Patient Room #: 211 Status: routine BSA: 2.49 HR: 100 bpm BP: 138/90 mmHg Rhythm: Atrial Fibrillation Other Information Study Quality: Adequate Indications MV endocarditis. Bilateral BKA. 2D Dimensions RVDd: 43.01 mm LVEF(%): 44.14 (>50%) IVSd: 13.13 (7-11mm) LVOT Diam: 24.90 (18-24mm) LVDd: 48.37 mm PWd: 13.44 (7-11mm) Ascending Ao: 37.01 (22-36mm) LVDs: 37.80 (25-40mm) Aortic Root: 39.37 mm Wyman's LVEF: 44.14 % Volumes Left Atrial Volume (Systole) Single Plane 4CH: 87.32 mL Single Plane 2CH: 111.53 mL Aortic Valve AoV Peak Abdirashid.: 1.20 m/s AO Peak Gr.: 7.72 mmHg LVOT Max P.44 mmHg LVOT Max V: 0.92 m/s ALISTAIR Vmax: 3.73 cm2 Mitral Valve MV Decel. Time: 169.54 ms MV E Max Abdirashid.: 1.04 m/s [facility] [address] [place] [address] 2 D/M-MODE ECHOCARDIOGRAM Name: JOHNSONGERSON W Room #: 211-[facility]#: [id number] Admission: 03/19/17 Attend Phys: Keron Carroll MD Discharge: Date of : 70 Date of Service: 03/21/17 1429 Report #: [id number] Pulmonary Valve PV Peak Abdirashid.: 0.80 m/s PV Peak Gr.: 2.57 mmHg Tricuspid Valve TR Peak Abdirashid.: 2.69 m/s RAP Estimate: 10.00 mmHg TR Peak Gr.: 29.04 mmHg PA Pressure: 39.00 mmHg Left Ventricle The left ventricle is normal size. Mild concentric left ventricular hypertrophy. Left ventricular systolic function is normal. LVEF is 50%. This study is not technically sufficient to allow evaluation of the LV diastolic function due to atrial fibrillation. Right Ventricle Right ventricle is at the upper limits of normal. RV function is borderline. Atria Left atrium is moderately dilated. The atrial septum is hyperdynamic. Right atrium is mildly dilated. Aortic Valve The aortic valve is normal in structure. No aortic regurgitation is present. There is no aortic valvular stenosis. Mitral Valve thickened leaflets poorly visualized Mild mitral regurgitation. No evidence of mitral valve stenosis. Tricuspid Valve The tricuspid valve is normal in structure. There is mild to moderate tricuspid regurgitation. The right atrial pressure is estimated at 10 mmHg. There is mild-moderate pulmonary hypertension with an estimated PAP of 40mmHg. Pulmonic Valve The pulmonary valve is normal in structure. Trace pulmonic regurgitation. Great Vessels Aortic root is at the upper limits of normal. The ascending aorta is borderline dilated. IVC is dilated and collapses <50% with inspiration. Pericardium [facility] [address] [place] [address] 2 D/M-MODE ECHOCARDIOGRAM Name: GERSON JOHNSON Room #: 211-P [facility] IN [facility].#: [id number] Admission: 03/19/17 Attend Phys: Keron Carroll MD Discharge: Date of : 70 Date of Service: 03/21/17 1429 Report #: [id number] Small anterior pericardial effusion vs fat pad. hemodynamically insignificant Left and right pleural effusions noted. <Conclusion> The left ventricle is normal size. LVEF is 50%. Right ventricle is at the upper limits of normal. The aortic valve is normal in structure. No aortic regurgitation is present. There is no aortic valvular stenosis. thickened leaflets poorly visualized Mild mitral regurgitation. No evidence of mitral valve stenosis. The tricuspid valve is normal in structure. There is mild to moderate tricuspid regurgitation. The right atrial pressure is estimated at 10 mmHg. There is mild-moderate pulmonary hypertension with an estimated PAP of 40mmHg. The pulmonary valve is normal in structure. Trace pulmonic regurgitation. The ascending aorta is borderline dilated. Small anterior pericardial effusion vs fat pad. hemodynamically insignificant Left and right pleural effusions noted. <ELECTRONICALLY SIGNED> By: Kenn Quezada MD 03/21/17 1429 1429 1429 Kenn Quezada MD /INF
[~2017-03-19 09:54] MED LIST changes: +CARAFATE1 GM PO; +PROBIOTIC1 EAC3 PO
[2017-03-19 10:18] LABS: ABG SAMPLE TYPE ARTERIAL; BE(vivo) -3.9 mmol/L (-2 to +3); HCO3 26.4 mmol/L (22.0-26.0); LACTATE 0.91 mmol/L (0.5-2.0); O2(CT) 15.1 mL/dL (15.0-23.0); O2Hb 96.2 % (92.0-98.0); PO2 113.6 mmHg (80.0-100.0); sO2 96.5 % (92.0-98.0); tCO2 28.8 mmol/L (24.0-30.0)
[2017-03-19 10:19] LABS: PCO2 79.6 mmHg (35.0-45.0); Pressure Support 16 cm H20; STICK SITE R.RADIAL; VDS BIPAP SPONT TIMED cc; pH 7.138 (7.360-7.450)
[2017-03-19] MEDS ORDERED: LASIX 40 MG TAB40 M2 PO (10:56)
[2017-03-19] MEDS ORDERED: COLACE100 MG PO (10:56)
[2017-03-19] MEDS ORDERED: PROBIOTIC1 EAC1 PO (10:57)
[2017-03-19] MEDS ORDERED: LOPRESSOR50 PO (10:57)
[2017-03-19] MEDS ORDERED: VANCO1GM IV (11:00)
[2017-03-19] MEDS ORDERED: DUCODYL5 MG PO (11:02)
[2017-03-19 11:04] LABS: URINE BILIRUBIN NEGATIVE (Negative); URINE BLOOD 3+ (Negative); URINE COLOR RED; URINE GLUCOSE-RANDOM* TRACE (Negative); URINE KETONES NEGATIVE (Negative); URINE PROTEIN (DIPSTICK) 3+ (Negative); URINE SPECIFIC GRAVITY 1.015 (1.003-1.035); URINE UROBILINOGEN 0.2 E.U./dl (0.2-1.0)
[2017-03-19 11:07] LABS: URINE LEUKOCYTES-REFLEX 2+ (Negative)
[2017-03-19 11:18] LABS: HEMATOCRIT 31.2 % (42.0-52.0); HEMOGLOBIN 9.7 gm/dL (14.0-18.0); MCH 26.8 pg (26.0-34.0); MCHC 31.3 g/dL (28.0-37.0); MCV 85.7 fL (80.0-100.0); PLATELET COUNT 300 thou/uL (150-400); RBC 3.64 mil/uL (4.50-6.00); WBC 14.5 thou/uL (4.0-11.0)
[2017-03-19 11:19] LABS: MANUAL DIFF YES
[2017-03-19 11:22] LABS: CALCIUM 8.9 mg/dL (8.5-10.1)
[2017-03-19 11:57] LABS: CASTS None Seen /LPF (None Seen); CRYSTALS None Seen /LPF (None Seen); SQUAMOUS 0-3 Few /LPF (0-3); URINE RBC >20 Many /HPF (0-2)
[2017-03-19 12:01] LABS: ABG SAMPLE TYPE ARTERIAL; BE(vivo) -6.1 mmol/L (-2 to +3); HCO3 23.1 mmol/L (22.0-26.0); LACTATE 0.87 mmol/L (0.5-2.0); O2(CT) 14.9 mL/dL (15.0-23.0); O2Hb 97.3 % (92.0-98.0); PO2 142.1 mmHg (80.0-100.0); sO2 98.1 % (92.0-98.0); tCO2 25.1 mmol/L (24.0-30.0)
[2017-03-19 12:03] LABS: PCO2 65.7 mmHg (35.0-45.0); Pressure Support 20 cm H20; STICK SITE R.RADIAL; VDS BIPAP SPONT TIMED cc; pH 7.163 (7.360-7.450)
[2017-03-19 12:56] LABS: ABSOLUTE NEUTROPHILS 12.5 thou/uL (1.4-8.2); METAMYELOCYTES 1 %; TOTAL CELL COUNT 100
[2017-03-19 12:57] LABS: ANISOCYTOSIS 1+; POLYCHROMASIA OCCASIONAL
[2017-03-20] VITALS (16 sets, daily range): BP systolic 117–184; BP diastolic 75–99
[2017-03-20 03:40] LABS: HEMATOCRIT 31.1 % (42.0-52.0); HEMOGLOBIN 9.7 gm/dL (14.0-18.0); MCH 26.5 pg (26.0-34.0); MCHC 31.1 g/dL (28.0-37.0); MCV 85.1 fL (80.0-100.0); RBC 3.65 mil/uL (4.50-6.00); RDW 16.8 % (10.5-14.5); WBC 12.2 thou/uL (4.0-11.0)
[2017-03-20 03:52] LABS: CALCIUM 8.6 mg/dL (8.5-10.1); POTASSIUM 4.3 mmol/L (3.5-5.1)
[2017-03-20 03:54] LABS: CREATININE 4.2 mg/dL (0.7-1.3)
[2017-03-20 05:58] LABS: ABG SAMPLE TYPE ARTERIAL; BE(vivo) 5.9 mmol/L (-2 to +3); HCO3 32.4 mmol/L (22.0-26.0); LACTATE 1.33 mmol/L (0.5-2.0); O2(CT) 12.5 mL/dL (15.0-23.0); O2Hb 89.8 % (92.0-98.0); PCO2 58.3 mmHg (35.0-45.0); PO2 59.5 mmHg (80.0-100.0); pH 7.363 (7.360-7.450); sO2 89.3 % (92.0-98.0); tCO2 34.2 mmol/L (24.0-30.0)
[2017-03-20 05:59] LABS: STICK SITE RRA
[2017-03-21 03:09] VITALS: BP 153/101; BP 153/99
[2017-03-21 03:38] LABS: ALBUMIN 2.4 g/dL (3.4-5.0); CALCIUM 8.7 mg/dL (8.5-10.1); PHOSPHORUS 3.8 mg/dL (2.5-4.9)
[2017-03-21 04:02] LABS: CREATININE 5.4 mg/dL (0.7-1.3)
[2017-03-21 11:40] VITALS: BP 138/90
[2017-03-21 15:57] VITALS: BP 166/89
[2017-03-21 16:31] VITALS: BP 166/89
[2017-03-21 19:59] VITALS: BP 140/71
[2017-03-22 04:21] VITALS: BP 148/102
[2017-03-22 07:39] VITALS: BP 154/93
[2017-03-22 09:36] LABS: HEMATOCRIT 32.3 % (42.0-52.0); HEMOGLOBIN 10.2 gm/dL (14.0-18.0); MCH 27.2 pg (26.0-34.0); MCHC 31.8 g/dL (28.0-37.0); MCV 85.7 fL (80.0-100.0); RBC 3.76 mil/uL (4.50-6.00); WBC 12.2 thou/uL (4.0-11.0)
[2017-03-22 09:48] LABS: CALCIUM 8.6 mg/dL (8.5-10.1); CREATININE 4.8 mg/dL (0.7-1.3); POTASSIUM 4.9 mmol/L (3.5-5.1)
[2017-03-22 11:27] VITALS: BP 168/106
[2017-03-22 17:58] LABS: ABG SAMPLE TYPE ARTERIAL; BE(vivo) 1.7 mmol/L (-2 to +3); HCO3 29.6 mmol/L (22.0-26.0); LACTATE 0.51 mmol/L (0.5-2.0); O2(CT) 13.3 mL/dL (15.0-23.0); PO2 74.4 mmHg (80.0-100.0); pH 7.276 (7.360-7.450); sO2 92.6 % (92.0-98.0); tCO2 31.6 mmol/L (24.0-30.0)
[2017-03-22 17:59] LABS: STICK SITE R.BRACHIAL
[2017-03-22 20:42] VITALS: BP 110/49
[2017-03-23 04:11] VITALS: BP 107/72; BP 149/95
[2017-03-23 06:59] LABS: ABG SAMPLE TYPE ARTERIAL; BE(vivo) 3.9 mmol/L (-2 to +3); HCO3 31.2 mmol/L (22.0-26.0); LACTATE 0.65 mmol/L (0.5-2.0); O2(CT) 14.2 mL/dL (15.0-23.0); O2Hb 94.6 % (92.0-98.0); PCO2 61.5 mmHg (35.0-45.0); PO2 85.4 mmHg (80.0-100.0); sO2 95.5 % (92.0-98.0); tCO2 33.1 mmol/L (24.0-30.0)
[2017-03-23 07:00] LABS: pH 7.323 (7.360-7.450)
[2017-03-23 07:01] LABS: ABG COMMENT OFF BIPAP; STICK SITE R.BRACHIAL
[2017-03-23 07:13] VITALS: BP 146/93
[2017-03-23 09:24] LABS: HEMATOCRIT 29.9 % (42.0-52.0); HEMOGLOBIN 9.6 gm/dL (14.0-18.0); MCHC 32.2 g/dL (28.0-37.0); MCV 83.9 fL (80.0-100.0); RBC 3.57 mil/uL (4.50-6.00); RDW 16.8 % (10.5-14.5); WBC 10.5 thou/uL (4.0-11.0)
[2017-03-23 11:20] VITALS: BP 142/84
[2017-03-23 15:40] VITALS: BP 150/95
[2017-03-23 19:58] VITALS: BP 162/101
[2017-03-24 03:33] VITALS: BP 197/125
[2017-03-24 07:06] LABS: APTT 27.4 Seconds (24.5-32.8); INR 1.1; PROTIME 11.4 Seconds (9.3-11.4)
[2017-03-24 12:24] VITALS: BP 147/89
[2017-03-24 14:39] LABS: BF NUCLEATED CELLS 282; BF RBC 10696
[2017-03-24 14:41] LABS: CLARITY CLOUDY; COLOR AMBER; MANUAL DIFF YES; TOTAL VOLUME 50 mL
[2017-03-24 15:15] VITALS: BP 139/94
[2017-03-24 15:28] LABS: BF NEUTROPHILS 20
[2017-03-24 20:08] LABS: BODY FLUID ALBUMIN 1.8 g/dL (()); BODY FLUID AMYLASE 68 U/L (()); BODY FLUID GLUCOSE 115 mg/dL (()); BODY FLUID LDH 125 IU/L (()); BODY FLUID PROTEIN 3.5 g/dL (())
== END 2017-03-24 18:45 | DRG 917 ==
LOC: ER 09:54 → EROBS 12:40 → 2N 12:40 → ICU 16:12 → 2N 03-20 17:00
PROVIDERS: Emergency Medicine; Hospitalist; Internal Medicine; Internal Medicine Nephrology; Internal Medicine Pulmonary Disease; Nurse Practitioner Acute Care
PROC: 5A09457 Assistance with Respiratory Ventilation, 24-96 Consecutive Hours, Continuous Positive Airway Pressure (ICD-10-PCS; 2017-03-19)
PROC: 0W9B3ZZ Drainage of Left Pleural Cavity, Percutaneous Approach (ICD-10-PCS; principal; 2017-03-24)
PROC: 5A1D60Z (ICD-10-PCS; 2017-03-24)
DX: T40.601A Poisoning by unspecified narcotics, accidental (unintentional), initial encounter (principal); N18.6 End stage renal disease; J96.22 Acute and chronic respiratory failure with hypercapnia; J96.21 Acute and chronic respiratory failure with hypoxia; I38 Endocarditis, valve unspecified; I12.0 Hypertensive chronic kidney disease with stage 5 chronic kidney disease or end stage renal disease; J90 Pleural effusion, not elsewhere classified; Z68.1 Body mass index [BMI] 19.9 or less, adult; E66.01 Morbid (severe) obesity due to excess calories; E78.5 Hyperlipidemia, unspecified; E11.42 Type 2 diabetes mellitus with diabetic polyneuropathy; E11.22 Type 2 diabetes mellitus with diabetic chronic kidney disease; B95.5 Unspecified streptococcus as the cause of diseases classified elsewhere; K21.9 Gastro-esophageal reflux disease without esophagitis; F32.9 Major depressive disorder, single episode, unspecified; E11.51 Type 2 diabetes mellitus with diabetic peripheral angiopathy without gangrene; D64.9 Anemia, unspecified; J44.9 Chronic obstructive pulmonary disease, unspecified; E11.319 Type 2 diabetes mellitus with unspecified diabetic retinopathy without macular edema; Z89.512 Acquired absence of left leg below knee; Z89.511 Acquired absence of right leg below knee; Z86.73 Personal history of transient ischemic attack (TIA), and cerebral infarction without residual deficits; Z79.899 Other long term (current) drug therapy; Z87.891 Personal history of nicotine dependence; Z99.2 Dependence on renal dialysis; Y92.89 Other specified places as the place of occurrence of the external cause
CPT/HCPCS: 10078; 10797; 32100